=== PATIENT | female | born 2000 | race Caucasian/White ===

== ENCOUNTER 2022-06-05 11:59 | Emergency (ER) | payer BC ==
[~2022-06-05] VITALS: Ht 172.7 cm; Wt 122.5 kg
[2022-06-05] MEDS ORDERED: ONDANSETRON ODT4 MG PO (15:37)
== END 2022-06-05 16:15 | disposition home or self-care (01) ==
LOC: EMR PED 11:59 → ER 11:59 → EMR PED 12:52
DX: R50.9 Fever, unspecified (principal); E86.0 Dehydration; R09.81 Nasal congestion; R11.10 Vomiting, unspecified; Z86.16 Personal history of COVID-19